=== PATIENT | female | born 1945 | race Caucasian/White ===

== ENCOUNTER → 2024-02-24 12:12 | Outpatient (REF) | payer MEDICARE, SELFPAY | LOC: REG 12:12 | PROVIDERS: ATTENDING PHYSICIAN Obstetrics & Gynecology; FAMILY PHYSICIAN Family Medicine | DX: Z22.322 Carrier or suspected carrier of Methicillin resistant Staphylococcus aureus (principal) | CPT/HCPCS: 36415; 87070 ==

== ENCOUNTER → 2024-03-15 10:22 | Outpatient (REF) | payer MEDICARE, SELFPAY | LOC: REG 10:22 | PROVIDERS: ATTENDING PHYSICIAN Obstetrics & Gynecology; FAMILY PHYSICIAN Family Medicine | DX: Z22.322 Carrier or suspected carrier of Methicillin resistant Staphylococcus aureus (principal) | CPT/HCPCS: 36415; 87070 ==

== ENCOUNTER → 2024-06-24 09:43 | Outpatient (REF) | payer MEDICARE, SELFPAY | LOC: HWRAD 09:43 | PROVIDERS: ATTENDING PHYSICIAN Obstetrics & Gynecology; FAMILY PHYSICIAN Family Medicine | DX: N95.0 Postmenopausal bleeding (principal) | CPT/HCPCS: 76830; 76856 ==

== ENCOUNTER → 2024-08-11 13:12 | Outpatient (REF) | payer MEDICARE, SELFPAY ==
[2024-08-11 15:21] LABS: Blood Urea Nitrogen 37 mg/dl (7-17); Calcium 10.1 mg/dl (8.4-10.2); Carbon Dioxide 27 mmol/L (22-30); Chloride 101 mmol/L (98-107); Glucose 102 mg/dl (70-99); Potassium 4.8 mmol/L (3.5-5.1); Sodium 139 mmol/L (135-145); eGFR 57.66
== END ==
LOC: REG 13:12
PROVIDERS: ATTENDING PHYSICIAN Obstetrics & Gynecology; FAMILY PHYSICIAN Family Medicine
DX: N82.4 Other female intestinal-genital tract fistulae (principal)
CPT/HCPCS: 36415; 80048

== ENCOUNTER → 2024-08-20 10:54 | Outpatient (REF) | payer MEDICARE, SELFPAY | LOC: RAD 10:54 | PROVIDERS: ATTENDING PHYSICIAN Surgery; FAMILY PHYSICIAN Family Medicine; OTHER PHYSICIAN Obstetrics & Gynecology | DX: N82.4 Other female intestinal-genital tract fistulae (principal) | CPT/HCPCS: 74177; Q9967 ==

== ENCOUNTER 2024-08-25 11:26 | Emergency (ER) | payer MEDICARE, SELFPAY ==
[2024-08-25 11:33] VITALS: BP 153/76
--- NOTE | 2024-08-25 16:35 | ED.GENMED ---
History of Present Illness
General
Chief Complaint: Abdominal Pain
Source: patient
Exam Limitations: none
Time Seen by Provider: 08/25/24 12:47
Nursing documentation reviewed up to this point in time: agreed with
History of Present Illness
History of Present Illness:
(Computer downtime)
79 yo female here for LLQ pain. 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 Had out pt barium enema 5 days ago. Developed LLQ �throbbing� pain
Had one episode diarrhea yesterday, denies n/v/c. Denies UTI symptoms.
Past History
Past History
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
ED Past Surgical History: Cholecystectomy, Gynecological and Orthopedic
Social History
Tobacco: Non-smoker
Alcohol: None
Personal: Single
Living: alone
Review of Systems
Review of Systems
Allergies reviewed?: Yes
All Other Systems: ROS reviewed and negative except as documented in HPI and ROS
Constitutional: Denies fever
Respiratory: Denies trouble breathing
Cardiac: Denies chest pain
ABD/GI: Reports abdominal pain; Denies nausea or vomiting
: Reports other (Chronic Intermittent stool from vagina)
Phy Exam
Physical Exam
Physical Exam:
GENERAL: No acute distress. A&Ox3.
CONSTITUTIONAL: Afebrile.
EYES: clear, conjunctivae normal
ENMT: moist mucus membranes, Pharynx nl
RESPIRATORY: Regular respirations, nonlabored, lungs clear.
CARDIOVASCULAR: Regular rate and rhythm, no murmurs, no rubs.
GI: Soft, nontender, normal BS
MUSCULOSKELETAL: Moves with ease. Well perfused.
SKIN: Warm, dry, pink
PSYCH: Normal mood and affect. Well kept, interactive and appropriate
NEUROLOGIC: Awake, alert and oriented. No focal neurological deficits
Course
Orders/Labs/Results
Orders:
Orders
08/25/24 13:02
CT Abd/pel Without Iv Or Oral Urgent
Comment:
Reason For Exam: pain LLQ after barium enema 5 days ago
08/25/24 14:01
Complete Blood Count/With Diff Urgent
Comprehensive Metabolic Panel Urgent
Lipase Urgent
Abnormal Lab Results
08/25/24
14:01
MCH 32.5 H pg
(27.0-31.0)
Abs Immat Gran (auto) 0.1 H 10^3/uL
(0-0.05)
Absolute Monos (auto) 0.9 H 10^3/uL
(0.1-0.6)
Immature Gran % 0.6 H %
(0-0.5)
Carbon Dioxide 32 H mmol/L
(22-30)
BUN 28 H mg/dl
(7-17)
08/25/24 14:01
08/25/24 14:01
Vital Signs
Initial and Last Documented VS:
Initial Vital Signs
Temp Pulse Resp BP Pulse Ox
97.9 F 71 16 153/76 99
08/25/24 11:33 08/25/24 11:33 08/25/24 11:33 08/25/24 11:33 08/25/24 11:33
Last Documented Vital Signs
Temp Pulse Resp BP Pulse Ox
97.9 F 71 16 153/76 99
08/25/24 11:33 08/25/24 11:33 08/25/24 11:33 08/25/24 11:33 08/25/24 11:33
MDM/Problems Addressed
Differential Diagnosis Includes:
diverticulitis, irritation from barium enema, perforation from barium enema
MDM/Problems Addressed:
(Computer downtime)
79 yo female here for LLQ pain . 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 Had out pt barium enema 5 days ago. Developed LLQ �throbbing� pain
Had one episode diarrhea yesterday, denies n/v/c. Denies UTI symptoms.
Has been moving bowels as usual.
3:00 p.m.
CBC: Unremarkable
CMP: BUN 28 otherwise unremarkable. IVFs ordered
Lipase normal
4:45 p.m.
IV fluids infused,
CT A/P - nothing grossly acute. True pelvis soft tissues signif obscured by beam artifact from Bilat hip replacements.
Pt with no significant pain. Will f/u with Dr. Morris.
Comfortable going home.
*Critical Care Note
Total Time (30-74mins, 75-104mins- exclusive of procedures): Not Applicable
ED Attending Note
-
Portions of this chart may have been created with voice recognition software.� Occasional wrong word or��sound alike� substitutions may have occurred due to the inherent limitations of voice recognition software.
Discharge Plan
Departure
Patient Disposition: Home (Routine Discharge)
Date of Disposition: 08/25/24
Time of Disposition: 16:45
Patient with high blood pressure during this ER visit?: No
Condition: Good
Discharge Problem:
Abdominal pain, LLQ
Instructions: Abdominal Pain
Referrals:
Arturo Franklin DO [Family Provider, Family Practice]
Williams Morris MD [Active, [facility]]
Activity Restrictions/Additional Instructions:
As we discussed, nothing worrisome in your workup here today.
Call Dr. Morris's office tomorrow and make next available appointment.
Interventions
Interventions:
*Risk Screen - Suicide Last Done: 08/25/24 11:37
*Neglect/Abuse Screening Last Done: 08/25/24 11:37
*Nursing Disposition Last Done: 08/25/24 17:11
Discharge Date and Time
Discharge Date/Time: 08/25/24 17:12
Print Language: FRENCH
[2024-08-25 17:05] LABS: % Basophils 0.6 % (0-2); % Eosinophils 0.6 % (0-6); % Immature Granulocytes 0.6 % (0-0.5); % Lymphocytes 20.8 % (20.5-51.1); % Neutrophils 68.4 % (42.2-75.2); Absolute Basophils 0.1 10^3/uL (0-0.2); Absolute Eosinophils 0.1 10^3/uL (0-0.7); Absolute Immature Granulocytes 0.1 10^3/uL (0-0.05); Absolute Monocytes 0.9 10^3/uL (0.1-0.6); Absolute Neutrophils 6.5 10^3/uL (1.4-6.5); Hematocrit 41.3 % (37.0-47.0); Hemoglobin 14.3 g/dL (12.0-16.0); Mean Corp Hgb Conc. 34.6 g/dL (33.0-37.0); Mean Corpuscular Hgb 32.5 pg (27.0-31.0); Mean Corpuscular Volume 93.9 fL (81.0-99.0); Mean Platelet Volume 9.2 fL (7.4-10.4); Nucleated Red Blood Cells % 0 %; Platelet Count 276 10^3/uL (130-400); Red Cell Dist. Width 12.5 % (11.5-14.5); White Blood Cell Count 9.5 10^3/uL (4.8-10.8)
[2024-08-25 17:32] LABS: AST (SGOT) 18 U/L (14-36); Albumin 4.1 g/dl (3.5-5.0); Alkaline Phosphatase 49 U/L (38-126); Blood Urea Nitrogen 28 mg/dl (7-17); Calcium 9.7 mg/dl (8.4-10.2); Carbon Dioxide 32 mmol/L (22-30); Chloride 106 mmol/L (98-107); Glucose 97 mg/dl (70-99); Lipase 125 U/L (23-300); Potassium 4.8 mmol/L (3.5-5.1); Sodium 140 mmol/L (135-145); Total Bilirubin 0.7 mg/dl (0.2-1.3); Total Protein 6.5 g/dl (6.3-8.2); eGFR > 60.00
[2024-08-25 18:30] LABS: ALT (SGPT) < 10 U/L (0-35)
== END 2024-08-25 17:12 | disposition home or self-care (01) ==
LOC: EMR 11:26
PROVIDERS: Registered Nurse; EMERGENCY PHYSICIAN Student in an Organized Health Care Education/Training Program; FAMILY PHYSICIAN Family Medicine
DX: R10.32 Left lower quadrant pain (principal); E78.00 Pure hypercholesterolemia, unspecified; I10 Essential (primary) hypertension; Z90.49 Acquired absence of other specified parts of digestive tract
CPT/HCPCS: 99284; 74176; 80053; 83690; 85025

== ENCOUNTER 2024-10-19 06:19 | Day surgery (SDC) | payer MEDICARE, SELFPAY | END 2024-10-19 14:27 | disposition home or self-care (01) | LOC: GI 06:19 | PROVIDERS: ATTENDING PHYSICIAN Surgery | DX: Z12.11 Encounter for screening for malignant neoplasm of colon (principal); N82.3 Fistula of vagina to large intestine; K57.30 Diverticulosis of large intestine without perforation or abscess without bleeding; K64.8 Other hemorrhoids; K56.699 Other intestinal obstruction unspecified as to partial versus complete obstruction; D12.5 Benign neoplasm of sigmoid colon; Z86.0100 Personal history of colon polyps, unspecified | CPT/HCPCS: 45385; 88305 ==

== ENCOUNTER 2024-11-30 05:49 | Inpatient (IN) | payer MEDICARE, SELFPAY ==
[2024-11-24 11:32] LABS: INR 0.92; PT 12.8 Sec (11.4-14.6)
[2024-11-24 11:33] LABS: APTT 30.9 Sec (23.4-35.0)
[2024-11-24 11:37] LABS: Hematocrit 43.3 % (37.0-47.0); Hemoglobin 14.3 g/dL (12.0-16.0); Mean Corp Hgb Conc. 33.0 g/dL (33.0-37.0); Mean Corpuscular Volume 96.7 fL (81.0-99.0); Platelet Count 317 10^3/uL (130-400); Red Cell Dist. Width 12.3 % (11.5-14.5)
[2024-11-24 12:30] LABS: ALT (SGPT) < 10 U/L (0-35); AST (SGOT) 20 U/L (14-36); Albumin 4.7 g/dl (3.5-5.0); Alkaline Phosphatase 67 U/L (38-126); Blood Urea Nitrogen 29 mg/dl (7-17); Calcium 9.7 mg/dl (8.4-10.2); Carbon Dioxide 29 mmol/L (22-30); Chloride 104 mmol/L (98-107); Glucose 88 mg/dl (70-99); Potassium 4.5 mmol/L (3.5-5.1); Sodium 140 mmol/L (135-145); Total Protein 7.3 g/dl (6.3-8.2); eGFR > 60.00
[2024-11-24 13:41] VITALS: BMI 23.2
[2024-11-24 14:06] LABS: Glycohemoglobin (HgbA1c) 5.2 % (4.0-5.6)
[2024-11-30] VITALS (15 sets, daily range): BP systolic 107–162; BP diastolic 40–121; BMI 23.7; BMI 23.2
[2024-11-30] MEDS: TYLENOL 1000 MG PO ×2 (06:28→18:22)
[2024-11-30] MEDS: CELEBREX 200 MG PO (06:29)
[2024-11-30] MEDS: LYRICA 150 MG PO (06:29)
[2024-11-30] MEDS: HEPARIN 5000 UNITS SC (06:29)
[2024-11-30] MEDS: NORMOSOL-R/PLASMALYTE-A 1000 IV ×2 (06:40→15:25)
[2024-11-30] MEDS: RELISTOR 12 MG SC (06:45)
--- NOTE | 2024-11-30 13:00 | W.IMMPOSTOP ---
Addendum entered and electronically signed by Williams Morris MD 11/30/24 13:19:
updated over the phone
Original Note:
Surgical Immed Post Op Note
-
Primary Surgeon: Williams Morris MD
Co�Surgeon: Aiden Alcala MD
Assisting Surgeon: SUZIE Haji
Pre-op Diagnosis: Colovaginal fistula, chronic diverticulitis
Post-op Diagnosis: Colovaginal fistula, chronic diverticulitis
Procedure Performed: Robotic colovaginal fistula takedown, sigmoidectomy, lysis of adhesions, flexible sigmoidoscopy, laparoscopic TAP block; repair of colovaginal fistula by Dr. Alcala; cystoscopy with bilateral ureteral stent placement by
Ruenes
Anesthesia Type: General
Specimen / Cultures: Rectosigmoid
Estimated Blood Loss: 75 mL
IVF 1.75 L
UOP 400 mL
Complications: None
Operative Findings: Entry via Veress technique; no significant adhesions to the anterior abdominal wall; placed 4 ports, an assist port and created a 4 cm Pfannenstiel; chronic inflammatory changes to the mid to distal sigmoid with significant
adhesions to the left pelvic brim and pelvis; freed from the lateral attachments and then performed medial to lateral dissection; visualized the right fallopian tube and ovary, unable to visualize the left ovary and fallopian tube; ligated LUPE and
mobilized mesentery from the retroperitoneum up to the mid descending colon; distal sigmoid colon looped into the pelvis and adherent to the anterior pelvis, likely the colovaginal fistula,; after rectosigmoid completely free, no obvious defect in
the vagina identified; Dr. Alcala performed a vaginal exam and identified the likely fistula at the vaginal cuff; the repaired this in 2 layers; transected proximal rectum at about 10 cm from the anal verge and proximal sigmoid on healthy colon
with green loads; performed EEA stapled anastomosis, intact donuts, negative leak test, anastomosis intact on flexible sigmoidoscopy; diffuse oozing noted and gave 1 g of TXA; performed laparoscopic tap block
--- NOTE | 2024-11-30 13:07 | OR.RPT ---
Operative Report
Operative Report
DATE OF OPERATION: 11/30/2024
SURGEON: Williams Morris MD
CO-SURGEON: Aiden Alcala MD
PREOPERATIVE DIAGNOSIS: Colovaginal fistula, chronic diverticulitis
POSTOPERATIVE DIAGNOSIS: Colovaginal fistula, chronic diverticulitis
OPERATION: Robotic colovaginal fistula takedown, adhesiolysis greater than 30 minutes, mesenteric angiography with ICG, sigmoidectomy, flexible sigmoidoscopy, laparoscopic TAP block; repair of colovaginal fistula by Dr. Alcala; cystoscopy and
insertion of bilateral ureteral stents by Dr. Rodriguez
ASSISTANTS:
1. SUZIE Haji
ANESTHESIA: General
ESTIMATED BLOOD LOSS: 75 mL
IVF: 1.75 L
URINE OUTPUT: 400 mL
FINDINGS:
1. Chronic diverticulitis of the mid to distal sigmoid with looping of the distal sigmoid into the pelvis; identified dense fibrosis anteriorly, likely representing the colovaginal fistula; no overt vaginal defect seen
2. Dr. Alcala confirmed fistula at the vaginal cuff and repaired this in 2 layers
3. Performed EEA stapled anastomosis from the proximal rectum at 10 cm from the anal verge to the proximal sigmoid; donuts intact, negative leak test, anastomosis intact on flexible sigmoidoscopy
SPECIMENS:
1. Rectosigmoid colon
DRAINS: None
COMPLICATIONS: No immediate complications.
INDICATIONS: The patient is a 79-year-old female who was seen by Dr. Alcala for urinary incontinence. During a pelvic exam, Dr. Alcala identified feculent material within the vagina. She confirmed that she was having brown vaginal drainage. A
CT scan was done with oral and rectal contrast demonstrating contrast within the vagina, concerning for colovaginal fistula. Therefore, she was offered surgery. She has had a long history of recurrent diverticulitis, which most likely represents
the etiology of the fistula. She also had a prior hysterectomy. The operation was discussed with the patient in detail, including the risks, benefits and alternatives. Risks described included, but not limited to, bleeding, infection, anastomotic
leak, damage to nearby structures (i.e.- ureter, bowel, solid organs), incisional hernia, recurrent diverticulitis, need for ostomy creation, conversion to open, identification of a fistula from the rectum requiring a lower resection, and anesthetic
risks. The patient understood and agreed to proceed.
PROCEDURE IN DETAIL: The patient was taken to the operating room and placed on the operating table in supine position. Sequential compression devices were placed bilaterally. General anesthesia was induced and the patient was intubated without
complication. The patient was placed in lithotomy position with both arms tucked. Urology performed a cystoscopy, placed bilateral ureteral stents, injected each ureter with 2.5mL of ICG and placed a Mcqueen. The abdomen was prepped and draped in a
sterile fashion. A time-out was performed verifying the correct patient, procedure, operative site, positioning, and special equipment. Anesthesia placed an orogastric tube. Preoperative antibiotics were given. A marking pen was used to flores out
the midline.
An 8 mm incision at Blackman's point was made with an 11 blade scalpel. A Veress needle was used to gain abdominal access. After 3 clicks, the insufflation was connected to the Veress needle and the opening pressure was noted to be less than 8 mmHg.
The abdomen was insufflated to a pressure of 12 mmHg. An 8 mm robotic trocar was inserted. The robotic camera was advanced and intra-abdominal placement was confirmed. The abdomen was examined. No injuries were noted from port entry or from the
Veress needle. No concerning lesions were noted on the surface of the liver or the peritoneum. The remaining three 8mm robotic ports were placed under direct visualization in a diagonal fashion from Blackman's point to the right lower quadrant, as
well as an 8mm assist port in the right lateral mid abdomen, taking care to avoid injury to the right epigastric vessels. The left upper quadrant port was changed to the air seal port.
A 4 cm Pfannenstiel incision was created 2 fingerbreadths above the pubic symphysis. This was carried down to the anterior fascia with electrocautery and hemostasis was assured. The fascia was incised to just beyond the length of the skin
incision. The fascia was grasped with Robert's and elevated. The adhesions to the anterior fascia were taken down bluntly from the rectus abdominis muscle and the midline attachment was taken down with electrocautery. This was performed both
superiorly and inferiorly to our incision. The rectus was split along the midline, first scoring the linea alba with electrocautery, then bluntly with a Maegan clamp to reveal the peritoneum, which was grasped and elevated with Kellys. The
peritoneum was incised with Metzenbaum scissors, taking care to avoid injury to intraperitoneal structures. The peritoneum was incised cranially and caudally to the greatest extent that our incision would allow, taking care to avoid injury to the
bladder. A small Leopoldo with port cap was placed and a robotic 12 mm port was placed through the port cap. The patient was placed in steep trendelenburg and [id number]. The robot was docked from the patient's left side. From the RLQ to
Blackman's point, the instruments introduced were the scissors, camera, bipolar grasper and tip-up grasper, respectively.
The small bowel was retracted out of the pelvis and towards the right upper quadrant. There were chronic inflammatory changes to the mid-distal sigmoid colon with significant adhesions to the left pelvic brim and pelvis. The sigmoid looped down
into the pelvis. I was able to identify the right ovary and fallopian tube, which appeared normal. I freed the adhesions from the left pelvic brim and left upper pelvis, taking care to avoid injury to the iliac vessels and left ureter, which was
easily seen on firefly. I was unable to visualize the left ovary. I raised the sigmoid colon and began a medial to lateral dissection. The peritoneum overlying the sacral promontory was scored and entered. This dissection was taken medially
toward the left ureter and superiorly towards the LUPE pedicle, taking care to avoid injury to the hypogastric nerves. I circumferentially dissected the LUPE pedicle and divided this with the vessel sealer, keeping the left ureter safe. I continued
the dissection, mobilizing the retroperitoneum from the mesentery up to the mid-descending colon. I then took down the lateral attachments.
I continued the dissection inferiorly, posteriorly to the rectum in the presacral plane, and took this down to the mid-rectum, taking care to avoid injury to the presacral venous plexus. I returned to anterior and meticulously dissected the colon
from the anterior pelvis. I took my posterior dissection up the sides of the rectum bilaterally to ensure I was in the correct plane. I was able to identify the cul-de-sac. I took down the chronic adhesions from the colon to the anterior pelvis,
connecting down into the cul-de-sac. A sizer was placed in the vagina, confirming no obvious injury. At this point, the rectosigmoid was completely mobilized. I did not see an obvious vaginal defect, but I suspect that within this chronic
fibrosis was the colovaginal fistula. I performed a flexible sigmoidoscopy. There was minimal liquid stool, which I suctioned. There was no inflammation noted within the rectum or distal sigmoid. The sigmoidoscope was withdrawn.
I called in Dr. Alcala, who performed vaginal exam and identified the likely fistula at the vaginal cuff. He will dictate this portion separately. He repaired the defect from the intra-abdominal side with 2 layers. I prepared for my resection.
I passed up EEA sizers in progressively increasing size to ensure adequate circumference and reach. I selected a transection point at approximately 10 cm from the anal verge. I went back to the console. I retracted the rectosigmoid anteriorly and
created a tunnel through the mesorectum. I ligated it with the vessel sealer, ensuring hemostasis at the superior rectal artery. I stapled and divided at this point with the 60 mm robotic stapler using the green load.
For my proximal transection point, I assessed the sigmoid and distal descending colon. There was inflammation and thickening of the colon wall up to the level of the mid sigmoid colon. I selected a point just proximal to this area on healthy
colon. I elevated the colon at this point with my tip up grasper. I fanned out the mesentery from the divided LUPE stump. I ligated the mesentery from this spot to my transection point, taking care to avoid injury to the left ureter. Anesthesia
injected ICG and perfusion was confirmed to my proposed transection point.
I elected to proceed with an intracorporeal end-to-end stapled anastomosis with EEA stapler. A colotomy in the devascularized segment of colon was created using the robotic scissors at a point distal to my proposed proximal transection point. The
anvil with a long Prolene suture attached at the tip was carefully passed through the colotomy and advanced proximally up the descending colon, with the long Prolene remaining outside of the colon. The colotomy was closed around the Prolene stitch
using a V-Loc running stitch. The robotic stapler with a blue load was used to staple and divide the descending colon at my proposed transection point where adequate perfusion was noted on firefly. The specimen was placed in the left upper
quadrant. The Prolene attached to the anvil was grasped and pulled through the staple line after removing a few paolo. I grasped and elevated the anvil and cleaned up the staple line from intervening mesentery and fat. The anvil was seated along
the staple line nicely without intervening diverticula or mesentery. Then, the specimen was removed through the Pfannenstiel port and passed off for pathology.
I checked the reach of the proposed anastomosis once more and it was plenty adequate. The operative field was surveyed and hemostasis was ensured. Sizers were passed up the rectum once more to ensure adequate circumference and length. The EEA
stapler was passed transanally to the distal staple line. The pin was extended and was connected with the anvil. After ensuring there was no twist to the mesentery and there was no tension, the EEA stapler was then closed for 1 minute and then
fired. Both donuts were intact. A leak test was performed by filling the pelvis with saline, occluding the proximal lumen and insufflating with the flexible sigmoidoscope. There was no evidence of leak from the anastomosis. Endoscopically, the
anastomosis was intact without evidence of bleeding. The colorectum was desufflated and the flexible sigmoidoscope removed. I checked for hemostasis once more. There was diffuse oozing noted along the areas of dissection, including the presacral
space and left retroperitoneum. I irrigated and suctioned the blood and no obvious site of bleeding was seen. I instructed anesthesia to give 1 g of TXA.
The robotic instruments were removed and the robot was undocked. Using laparoscopic visualization, a TAP block was performed using a total of 30 mL of 0.25% Marcaine with epinephrine mixed with dexamethasone and injecting in the transverse
abdominis plane bilaterally. The remaining ports were removed under direct visualization and no bleeding was noted. The Pfannenstiel incision was closed in layers. First, the peritoneum was closed with a running 0-Vicryl stitch. Then, the
anterior fascia was closed using a #1 Stratafix suture. The incisions were irrigated. The remaining 30 cc of 0.25% Marcaine with epinephrine mixed with dexamethasone were injected around the incisions. The incisions were closed with running
subcuticular 4-0 Monocryl and dressed with Dermabond.
At this point, the procedure was complete. The patient was awoken and extubated without complication. The right stent was removed, and the left stent and Mcqueen were left in place. All needle, sponge and instrument counts were reported as correct.
The patient tolerated the procedure well and was transferred to the recovery room in stable condition with the mcqueen in place.
DICTATED BY: Williams Morris MD
[2024-11-30 15:04] LABS: Hematocrit 40.1 % (37.0-47.0); Hemoglobin 13.3 g/dL (12.0-16.0); Mean Corp Hgb Conc. 33.2 g/dL (33.0-37.0); Mean Corpuscular Volume 97.8 fL (81.0-99.0); Platelet Count 259 10^3/uL (130-400); Red Cell Dist. Width 12.6 % (11.5-14.5)
[2024-11-30 15:24] LABS: Blood Urea Nitrogen 21 mg/dl (7-17); Calcium 8.0 mg/dl (8.4-10.2); Carbon Dioxide 24 mmol/L (22-30); Chloride 101 mmol/L (98-107); Estimated Creatinine Clearance 52 ml/min; Glucose 214 mg/dl (70-99); Potassium 3.3 mmol/L (3.5-5.1); Sodium 138 mmol/L (135-145); eGFR > 60.00
[2024-11-30 15:49] LABS: Nucleated Red Blood Cells % 0 %
--- NOTE | 2024-11-30 16:19 | PTCARENOTE ---
Pt arrived to [facility]south in a bed from PACU. Pt drowsy but arousable to verbal. SR on the monitor. 96% on RA. [address] greenlandic [address] with punch color output; to be removed POD#2. 5 lap sites & 1 transverse CONTROLS DESIGNER with glue. IVF hung at 50cc/hr. Knee high
teds/scds in place. at bedside. Admission questions answered. Bed locked and in lowest position. Care ongoing.
[2024-11-30] MEDS: TORADOL 15 MG IV (18:21)
[2024-11-30 19:38] LABS: Glucose - Point of Care 185 mg/dl (70-99)
[2024-11-30] MEDS: KCL 270 MEQ IV (20:30)
[2024-12-01] VITALS (7 sets, daily range): BP systolic 104–140; BP diastolic 54–68
[2024-12-01] MEDS: TORADOL 15 MG IV ×4 (00:33→17:29)
[2024-12-01] MEDS: TYLENOL 1000 MG PO ×4 (00:45→17:29)
[2024-12-01] MEDS: ROXICODONE 5 MG PO ×3 (03:21→22:14)
[2024-12-01 06:03] LABS: Hematocrit 34.6 % (37.0-47.0); Hemoglobin 11.9 g/dL (12.0-16.0); Mean Corp Hgb Conc. 34.4 g/dL (33.0-37.0); Mean Corpuscular Volume 95.6 fL (81.0-99.0); Nucleated Red Blood Cells % 0 %; Platelet Count 234 10^3/uL (130-400); Red Cell Dist. Width 12.5 % (11.5-14.5)
[2024-12-01 06:25] LABS: Blood Urea Nitrogen 25 mg/dl (7-17); Calcium 8.7 mg/dl (8.4-10.2); Carbon Dioxide 29 mmol/L (22-30); Chloride 100 mmol/L (98-107); Estimated Creatinine Clearance 41 ml/min; Glucose 156 mg/dl (70-99); Magnesium 2.6 mg/dl (1.6-2.3); Potassium 4.0 mmol/L (3.5-5.1); Sodium 135 mmol/L (135-145); eGFR > 60.00
[2024-12-01] MEDS: LEXAPRO 20 MG PO (09:01)
[2024-12-01] MEDS: PROTONIX 40 MG PO (09:01)
[2024-12-01] MEDS: ORETIC 12.5 MG PO (09:01)
[2024-12-01] MEDS: LIPITOR 10 MG PO (09:01)
[2024-12-01] MEDS: RELISTOR 12 MG SC (09:01)
[2024-12-01] MEDS: COZAAR 100 MG PO (09:10)
[2024-12-01] MEDS: NORMOSOL-R/PLASMALYTE-A IV (10:53)
[2024-12-01 12:03] LABS: Hematocrit 37.8 % (37.0-47.0); Hemoglobin 12.3 g/dL (12.0-16.0); Mean Corp Hgb Conc. 32.5 g/dL (33.0-37.0); Mean Corpuscular Volume 98.2 fL (81.0-99.0); Nucleated Red Blood Cells % 0 %; Platelet Count 245 10^3/uL (130-400); Red Cell Dist. Width 12.8 % (11.5-14.5)
[2024-12-01 12:15] LABS: Blood Urea Nitrogen 24 mg/dl (7-17); Calcium 8.6 mg/dl (8.4-10.2); Carbon Dioxide 28 mmol/L (22-30); Chloride 100 mmol/L (98-107); Estimated Creatinine Clearance 37 ml/min; Glucose 144 mg/dl (70-99); Potassium 4.9 mmol/L (3.5-5.1); Sodium 133 mmol/L (135-145); eGFR 57.66
--- NOTE | 2024-12-01 12:28 | W.PN.CRS1 ---
Today's Communication / Plan
-
Continue regular diet
Lovenox
DC Gee
Possible DC later today versus tomorrow
Assessment/Plan
-
POD#1 Robotic colovaginal fistula takedown, sigmoidectomy, lysis of adhesions, flexible sigmoidoscopy, laparoscopic TAP block; repair of colovaginal fistula by Dr. Alcala; cystoscopy with bilateral ureteral stent placement by Dr. Rodriguez
Hgb 12.3 (11.9, 13.3), WBC 19.6 (16.7, 23.1)
vitals normal
- Out of bed as tolerated
- Continue regular diet
- Hemoglobin rechecked and is improving
- Start Lovenox for DVT prophylaxis. Teds and SCDs in place.
- Statin removed at bedside. DC Gee.
- Pathology still pending
- Possible discharge later today versus tomorrow
Subjective Data
Procedure
11/30/2024- Robotic colovaginal fistula takedown, sigmoidectomy, lysis of adhesions, flexible sigmoidoscopy, laparoscopic TAP block; repair of colovaginal fistula by Dr. Alcala; cystoscopy with bilateral ureteral stent placement by Dr. Rodriguez
Subjective Data
Date of Service: December 01, 2024
Patient states she feels well. She has no complaints. She has some flatus. Her pain is controlled. Tolerating regular diet.
Objective Data
-
Vital Signs
Temp Pulse Resp BP Pulse Ox
98.7 F 85 18 104/55 96
12/01/24 11:20 12/01/24 11:20 12/01/24 11:20 12/01/24 11:20 12/01/24 11:20
Intake & Output
11/30/24 12/01/24 12/02/24
06:59 06:59 06:59
Intake Total 1470 / 1470
Output Total 1600 / 1600 350 / 350
Balance -130 / -130 -350 / -350
Intake:
Oral fluids 620 / 620
IV fluids (Total) 850 / 850
normasol 100 / 100
Output:
Urine, Gee 1600 / 1600 350 / 350
Lab Results
12/01/24 11:47
12/01/24 11:47
Physical Exam
-
General: No Acute Distress and AOx3
Abdomen: Soft, Non Distended and Non Tender
Skin: Warm and Dry
Incision: Clear, Dry, Intact
--- NOTE | 2024-12-01 14:56 | CM ---
CM following re: discharge planking.
Reviewed pt's chart, met with pt.
Pt is a 79 year old female, admitted with primary dx of POD 1 robotic sigmoidectomy with colovaginal fistula takedown, repair of vaginal fistula, cystoscopy and ureteral stents.
Pt reports she lives with 2SH, 2 steps to enter, has 6 supportive children. 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 Pt expressed her desire to return
back home at discharge with family support. pt stated she does not anticipate after care VN services.
PCP: Williams Morris
Pharmacy: [facility]
D/c plan: home with anticipated no needed. to transport at discharge.
CM will follow with discharge plan updates as hospitalization progresses
[2024-12-01] MEDS: LOVENOX 40 MG SC (17:30)
[2024-12-01] MEDS: REFRESH EYE DROPS (PF) 1 DROPS OPHTH (21:37)
[2024-12-02] MEDS: TORADOL IV ×3 (00:47→11:43)
[2024-12-02] MEDS: TYLENOL PO ×3 (00:47→11:44)
[2024-12-02 03:05] VITALS: BP 145/71
[2024-12-02 06:40] LABS: Hematocrit 32.9 % (37.0-47.0); Hemoglobin 10.9 g/dL (12.0-16.0); Mean Corp Hgb Conc. 33.1 g/dL (33.0-37.0); Mean Corpuscular Volume 96.5 fL (81.0-99.0); Nucleated Red Blood Cells % 0 %; Platelet Count 188 10^3/uL (130-400); Red Cell Dist. Width 12.6 % (11.5-14.5)
[2024-12-02 07:03] LABS: Blood Urea Nitrogen 22 mg/dl (7-17); Calcium 8.6 mg/dl (8.4-10.2); Carbon Dioxide 30 mmol/L (22-30); Chloride 107 mmol/L (98-107); Estimated Creatinine Clearance 41 ml/min; Glucose 100 mg/dl (70-99); Potassium 3.7 mmol/L (3.5-5.1); Sodium 137 mmol/L (135-145); eGFR > 60.00
[2024-12-02 07:15] VITALS: BP 162/73
--- NOTE | 2024-12-02 09:37 | W.PN.CRS1 ---
Today's Communication / Plan
-
discharge
Assessment/Plan
-
POD#2 Robotic colovaginal fistula takedown, sigmoidectomy, lysis of adhesions, flexible sigmoidoscopy, laparoscopic TAP block; repair of colovaginal fistula by Dr. Alcala; cystoscopy with bilateral ureteral stent placement by Dr. Rodriguez
Hgb WBC 11.4 (19.4), Hgb 10.9 (13.9)
vitals normal
- Out of bed as tolerated
- Continue regular diet
- Lovenox for DVT prophylaxis. Teds and SCDs in place.
- Voiding post mcqueen removal
- Pathology still pending
- Okay for discharge today. Discussed with patient who is in agreement. All discharge instructions were discussed with patient medications, active levels, and follow-up. All questions were answered. Follow-up with Dr. Morris in 2 weeks.
Subjective Data
Procedure
11/30/2024- Robotic colovaginal fistula takedown, sigmoidectomy, lysis of adhesions, flexible sigmoidoscopy, laparoscopic TAP block; repair of colovaginal fistula by Dr. Alcala; cystoscopy with bilateral ureteral stent placement by Dr. Rodriguez
Subjective Data
Date of Service: December 02, 2024
Patient states that she is feeling well. She had some little bit of bloody vaginal discharge which was expected. She is having bowel movements and flatus. Denies nausea or vomiting. Tolerating diet. She feels like she can go home today.
Objective Data
-
Vital Signs
Temp Pulse Resp BP Pulse Ox
98.5 F 73 16 162/73 98
12/02/24 07:15 12/02/24 07:15 12/02/24 07:15 12/02/24 07:15 12/02/24 07:15
Intake & Output
12/01/24 12/02/24 12/03/24
06:59 06:59 06:59
Intake Total 1470 / 1470 630 / 630
Output Total 1600 / 1600 650 / 650
Balance -130 / -130 -20 / -20
Intake:
Oral fluids 620 / 620 480 / 480
IV fluids (Total) 850 / 850 150 / 150
normasol 100 / 100
Output:
Urine, Mcqueen 1600 / 1600 350 / 350
Urine, Voided 300 / 300
Other:
Number of approximated LARGE 1
amounts of urine
Lab Results
12/02/24 06:11
12/02/24 06:11
Physical Exam
-
General: No Acute Distress and AOx3
Abdomen: Soft, Non Distended and Non Tender
Skin: Warm and Dry
Incision: Clear, Dry, Intact (some ecchymosis around incisions)
[2024-12-02] MEDS: RELISTOR 12 MG SC (09:54)
[2024-12-02] MEDS: PROTONIX 40 MG PO (09:56)
[2024-12-02] MEDS: LIPITOR 10 MG PO (09:56)
[2024-12-02] MEDS: COZAAR 100 MG PO (09:57)
[2024-12-02] MEDS: ORETIC 12.5 MG PO (09:57)
[2024-12-02] MEDS: LEXAPRO 20 MG PO (09:57)
[2024-12-02] MEDS: ROXICODONE 5 MG PO (10:04)
--- NOTE | 2024-12-02 11:13 | CM ---
Patient discharged today
no needs
IMM explained & signed. placed in chart.
PLAN: Home, no needs
to transport
[2024-12-02 11:30] VITALS: BP 144/72
--- NOTE | 2024-12-02 12:12 | PTCARENOTE ---
Rn breastfeeding program coordinator- Patient requesting hydrocodone. Abebe Mendez NP. who states will order.
== END 2024-12-02 12:41 | disposition home or self-care (01) | DRG 330 ==
LOC: 2 SOUTH 05:49
PROVIDERS: Physician Assistant; ADMITTING PHYSICIAN Surgery; FAMILY PHYSICIAN Family Medicine; REFERRING PHYSICIAN Obstetrics & Gynecology
PROC: 0UQG4ZZ Repair Vagina, Percutaneous Endoscopic Approach (ICD-10-PCS; 2024-11-30)
PROC: 0DNW4ZZ Release Peritoneum, Percutaneous Endoscopic Approach (ICD-10-PCS; 2024-11-30)
PROC: 0DTN8ZZ Resection of Sigmoid Colon, Via Natural or Artificial Opening Endoscopic (ICD-10-PCS; 2024-11-30)
PROC: 0DJD8ZZ Inspection of Lower Intestinal Tract, Via Natural or Artificial Opening Endoscopic (ICD-10-PCS; 2024-11-30)
PROC: 8E0W4CZ Robotic Assisted Procedure of Trunk Region, Percutaneous Endoscopic Approach (ICD-10-PCS; 2024-11-30)
PROC: 0DNE4ZZ Release Large Intestine, Percutaneous Endoscopic Approach (ICD-10-PCS; 2024-11-30)
DX: N82.3 Fistula of vagina to large intestine (principal); K57.32 Diverticulitis of large intestine without perforation or abscess without bleeding; N73.6 Female pelvic peritoneal adhesions (postinfective); I10 Essential (primary) hypertension; E78.5 Hyperlipidemia, unspecified; F41.9 Anxiety disorder, unspecified; R32 Unspecified urinary incontinence
CPT/HCPCS: 36415; 71046; 80048; 80053; 82962; 83036; 83735; 85025; 85027; 85610; 85730; 86850; 86900; 86901; 88307; 93005

== ENCOUNTER → 2024-12-14 11:48 | Outpatient (REF) | payer MEDICARE, SELFPAY ==
[2024-12-14 12:42] LABS: Urine Character Slightly Cloudy (Clear)
[2024-12-14 13:32] LABS: Urine White Cell >100 /HPF (0-5)
== END ==
LOC: REG 11:48
PROVIDERS: ATTENDING PHYSICIAN Obstetrics & Gynecology
DX: N39.0 Urinary tract infection, site not specified (principal)
CPT/HCPCS: 81003; 81015; 87077; 87086; 87186

== ENCOUNTER 2024-12-21 04:51 | Inpatient (IN) | payer MEDICARE, SELFPAY ==
[2024-12-20 20:24] VITALS: BP 183/97
[2024-12-20 20:46] LABS: Hematocrit 42.2 % (37.0-47.0); Hemoglobin 14.0 g/dL (12.0-16.0); Mean Corp Hgb Conc. 33.2 g/dL (33.0-37.0); Mean Corpuscular Volume 95.5 fL (81.0-99.0); Nucleated Red Blood Cells % 0 %; Platelet Count 417 10^3/uL (130-400); Red Cell Dist. Width 12.3 % (11.5-14.5)
[2024-12-20 20:59] LABS: Urine Character Slightly Cloudy (Clear)
[2024-12-20 21:07] LABS: ALT (SGPT) < 10 U/L (0-35); AST (SGOT) 22 U/L (14-36); Albumin 4.8 g/dl (3.5-5.0); Alkaline Phosphatase 79 U/L (38-126); Blood Urea Nitrogen 23 mg/dl (7-17); Calcium 10.0 mg/dl (8.4-10.2); Carbon Dioxide 26 mmol/L (22-30); Chloride 102 mmol/L (98-107); Glucose 123 mg/dl (70-99); Potassium 4.0 mmol/L (3.5-5.1); Sodium 137 mmol/L (135-145); Total Protein 7.7 g/dl (6.3-8.2); eGFR > 60.00
[2024-12-20 21:27] LABS: Urine Squamous Cell 0-2 /LPF (Few)
[2024-12-21 00:21] VITALS: BMI 26.7
[2024-12-21 00:24] VITALS: BP 151/92
[2024-12-21 01:00] VITALS: BP 126/98
[2024-12-21] MEDS: ZOFRAN 4 MG IV (01:32)
[2024-12-21] MEDS: OMNIPAQUE 50 ML PO (01:32)
[2024-12-21] MEDS: NSS 1500 IV (01:33)
[2024-12-21] MEDS: DILAUDID 0.5 MG IV (01:33)
--- NOTE | 2024-12-21 02:22 | ED.GENMED ---
History of Present Illness
General
Chief Complaint: Urinary Symptoms
Source: patient, records, spouse and previous hospital records
Exam Limitations: none
Time Seen by Provider: 12/21/24 00:59
Nursing documentation reviewed up to this point in time: agreed with
History of Present Illness
History of Present Illness:
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 Alcala and Dr. Morris
Postoperatively did well for a day or so then developed some fatigue and fever had urinalysis treated with Macrobid then another antibiotic and then most recently placed back on Macrobid
She has chronic pain in her left hip related to prior surgery with infection has had pain and had a spinal stimulator with an infection there, she takes tramadol 2-4 times a day as needed does note that she gets constipated with that
She spoke with her physicians today referred her to the ER for admission for IV antibiotics did receive a note from her treating colorectal surgeon that they wanted a contrast study with rectal contrast
Past History
Past History
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
ED Past Surgical History: Cholecystectomy, Gynecological and Orthopedic
Social History
Tobacco: Non-smoker
Alcohol: None
Drug: None
Personal: Single
Living: alone
Employment: Retired
Review of Systems
Review of Systems
All Other Systems: Not applicable
Constitutional: Reports fever, fatigue and chills
EENT: Reports no symptoms
Respiratory: Reports no symptoms
ABD/GI: Reports abdominal pain and nausea; Denies diarrhea or bloody stools
: Reports frequency; Denies difficulty voiding
Phy Exam
Physical Exam
Physical Exam:
Physical Exam
General: no apparent distress, not acutely ill
Neck: No jaundice
Heart: s1/s2 regular rate and rhythm, no murmur. equal radial pulses.
Lungs: no acute respiratory distress. clear bilaterally
Abdomen: Palpable 3 x 5 cm minimally tender area just left of midline in the low left abdomen
Neuro: alert and oriented. no focal neurological deficits
Skin: no rash
Psychiatric: well kept. interactive and cooperative
Extremities: no edema.
Course
Orders/Labs/Results
Orders:
Orders
12/20/24 20:36
Complete Blood Count/With Diff Urgent
Comprehensive Metabolic Panel Urgent
Urinalysis Reflex To Culture Urgent
Date Specimen was Collected: 12/20/24
Time Specimen was Collected: 20:27
Urine Microscopic Reflex Cult Urgent
Urine Culture Urgent
BURTON Source: U
Specimen Description:
Date Specimen was Collected: 12/20/24
Time Specimen was Collected: 20:27
12/21/24 01:06
0.9% Sodium Chloride 1000 ml [Nss] 1,500 ml IV BOLUS
HYDROmorphone [Dilaudid] 0.5 mg IV NOW STA
Ondansetron Injectable [Zofran] 4 mg IV NOW STA
12/21/24 01:12
Iohexol [Omnipaque] See Protocol PO NOW STA
12/21/24 01:14
CT Abd/pel W Iv And Oral Contr Urgent
Comment:
Reason For Exam: post op pain fever also rectal contrast
12/21/24 02:16
Add On- LAB Urgent
Tests Added?: Urine culture
12/21/24 02:48
Piperacillin/Tazo 3.375 Gram [Zosyn] 3.375 gram in 50 ml IV NOW
12/21/24 04:37
Meropenem [Merrem] 500 mg IV NOW STA
12/21/24 04:39
Admit/Transfer Patient As Directed
Co-Sign Provider:
Level of Care: Inpatient admission
Assign to:: Medical/Surgical
Physician / Group: Toribio
Diagnosis: UTI - Persistent / Recurrent
Reason for Hospitalization: UTI - Persistent / Recurrent
Expected length of stay greater than two midnights?: Yes
ELOS- Estimated Length of Stay in days: 3
I certify the patient meets the requirements for IP care: Yes
12/21/24 04:40
Sterile Water [Sterile Water For Injection] 10 ml IV NOW STA
PRN Pain Medication Management As Directed
May give lesser potent ordered pain med per pt: Yes
preference::
Protocol:: Medication orders for pain may be administered in a
manner that supports deferring to patient preference
when the pt is:
- Requesting an ordered lesser potent pain medication.
Least to most potent pain medications are defined
as: acetaminophen < NSAID < tramadol < opioids
(morphine, oxycodone, hydromorphone).
- Requesting a lesser dose of the same medication IF
ORDERED.
- Requesting a less intrusive route of administration
if both routes are prescribed by the provider (PO <
IV).
12/21/24 04:41
Code Status As Directed
Resuscitation Status: Full Code
12/21/24 05:24
0.9% Sodium Chloride 1000 ml [Nss] 1,000 ml IV 100 mls/hr
Acetaminophen [Tylenol] 650 mg PO Q4HPRN PRN
Methocarbamol 500 mg PO HSPRN PRN Muscle spasms Muscle spasms
Polyethylene Glycol Powder [Miralax] 17 grams PO DAILY PRN
Prochlorperazine [Compazine] 5 mg IV Q6HPRN PRN
Tramadol HCl [Ultram] 50 mg PO Q6H PRN Pain
12/21/24 05:24
ColoRectal Surgery Consult Routine
Consulting Provider: Williams Morris
Was physician already notified: No
Reason for consult: Colovaginal Fistula, UTI
Consult Notification Routine
Specialty to Notify: Colorectal Surgery
Date consulting provider notified: 12/21/24
Time consulting provider notified: 07:55
Notified:: Provider
Comment: TT'd Physician On-Call(Ronni)
Consult Notification Routine
Specialty to Notify: Infectious Disease
Date consulting provider notified: 12/21/24
Time consulting provider notified: 07:55
Notified:: Provider
Comment: TT'd Physician On-Call(William)
INFECTIOUS DISEASE CONSULT Routine
Consulting Provider: Keiko Thomas
Was physician already notified: No
Reason for consult: ESBL / Resistant UTI
Activity As Directed
Activity Level: Ambulate
With Assistance
I/O [Intake/ Output] As Directed
Frequency: Per unit guidelines
Vital Signs As Directed
Frequency: Per unit guidelines
Weight As Directed
Frequency: Daily
Oxygen Therapy [O2 Therapy] [RESP] Routine
Titrate/Wean O2 to maintain O2 sat greater than (%): 94
DX Deep Vein Thrombosis Video Routine
12/21/24 Breakfast
NPO
Allow oral meds: Yes
Allow clear liquids: Sips of Clears
12/21/24 07:30
Basic Metabolic Panel IN AM
Complete Blood Count/No Diff IN AM
12/21/24 08:00
Atorvastatin [Lipitor] 10 mg PO DAILY
Escitalopram Oxalate [Lexapro] 20 mg PO DAILY
Heparin 5,000 units SC Q12
Pantoprazole [Protonix] 40 mg PO DAILY
12/21/24 10:00
Meropenem [Merrem] 500 mg IV Q8H
Abnormal Lab Results
12/20/24
20:36
MCH 31.7 H pg
(27.0-31.0)
Plt Count 417 H 10^3/uL
(130-400)
Abs Immat Gran (auto) 0.1 H 10^3/uL
(0-0.05)
Absolute Monos (auto) 1.1 H 10^3/uL
(0.1-0.6)
Monocytes % 11.0 H %
(1.7-9.3)
BUN 23 H mg/dl
(7-17)
Glucose 123 H mg/dl
(70-99)
Urine Ketones 1+ A
(Negative)
Leukocyte Esterase Rfl 1+ A
(Negative)
Urine RBC 3-6 A /HPF
(0-2)
Urine Bacteria (Reflex) Few A
(Negative)
Urine Albumin (Reflex) 2+ A
(Neg - Trace)
12/20/24 20:36
12/20/24 20:36
Vital Signs
Initial and Last Documented VS:
Initial Vital Signs
Temp Pulse Resp BP Pulse Ox
98.3 F 85 18 183/97 100
12/20/24 20:24 12/20/24 20:24 12/20/24 20:24 12/20/24 20:24 12/20/24 20:24
Last Documented Vital Signs
Temp Pulse Resp BP Pulse Ox
98.4 F 71 12 157/81 95
12/21/24 23:43 12/21/24 23:43 12/21/24 23:43 12/21/24 23:43 12/21/24 23:43
*Pulse Oximetry
SaO2: 99
Oxygen Mode of Delivery: Room air
Patient hypoxic: no
*Critical Care Note
Total Time (30-74mins, 75-104mins- exclusive of procedures): Not Applicable
ED Attending Note
-
Portions of this chart may have been created with voice recognition software.� Occasional wrong word or��sound alike� substitutions may have occurred due to the inherent limitations of voice recognition software.
Discharge Plan
Departure
Patient Disposition: Admit
Date of Disposition: 12/21/24
Time of Disposition: 02:51
Presentation/result/management discussed w/ accepting MD/DO: Hospitalist
Patient with high blood pressure during this ER visit?: No
Condition: Fair
Discharge Problem:
Recurrent UTI
Interventions
Interventions:
*Risk Screen - Suicide Last Done: 12/21/24 05:43
*General Assessment Last Done: 12/21/24 00:21
*Neglect/Abuse Screening Last Done: 12/21/24 00:21
*ED- Fall Risk Assessment Last Done: 12/21/24 00:21
*ED COVID-19 Vaccine History Last Done: 12/21/24 05:43
*Nursing Disposition Last Done: 12/21/24 05:20
ED-Female Genitourinary Assessment Last Done: 12/21/24 02:49
Discharge Date and Time
Discharge Date/Time: 12/21/24 05:27
[2024-12-21] MEDS: STERILE WATER FOR INJECTION 10 ML IV ×3 (04:45→17:00)
[2024-12-21] MEDS: MERREM 500 MG IV ×3 (04:45→17:01)
--- NOTE | 2024-12-21 04:45 | HPS.HSE ---
Family Physician
-
Family Physician: Arturo Franklin
Chief Complaint
-
Chills, Abd Pain
History of Present Illness
Patient is a 79y F with PMH significant for recurrent UTIs and recent colovaginal fistula repair (11/30) who presents to ED complaining of persistent chills and lower abdominal discomfort. Patient underwent robotic colovaginal fistula repair with
partial colon resection and repair of vaginal wall defect on 11/30/24. She states that she felt well following the surgery. Unfortunately, she developed recurrent chills and lower abdominal discomfort - similar to her prior UTIs - Friday of last
week. Patient was originally placed on Macrobid. Her symptoms did not improve and she was changed to Bactrim. Culture data returned and she was changed back to Macrobid. Her symptoms have not improved. She spoke with her surgeon this evening
who recommended she be admitted to the hospital for IV antibiotics.
Patient notes that she 'does not get fevers'. She complains of chills, lower abdominal discomfort and general malaise. She has urinary frequency. No dysuria. Pos nausea without emesis. No cough or dyspnea. No chest pain.
Medical History
Past Medical History
Past Medical History: Reports Other
Additional Past Medical History:
Left Hip PJI - Chronic Pain
Hypertension
OAB
Past Surgical History: Reports Other
Additional Past Surgical History:
Robotic Sigmoid Resection, Takedown of Colovaginal Fistula, Repair of Vaginal Wall Defect (11/30/24)
Hysterectomy
Left SAMI - Multiple I&D / revision surgeries due to PJI
Right SAMI
Back Surgery
Lumpectomy
Cholecystectomy
Social History
Tobacco: Former Smoker (Quit smoking > 50 years ago.)
Alcohol: None
Drug: None
Family History
Family History: Not pertinent
Allergies / Home Medications
Allergies reflects when Allergies were last updated in [employer].
Home Medications with original date entered in [employer]
Allergy/Medication List:
Allergies
Allergy/AdvReac Type Severity Reaction Status Date / Time
Opioids - Morphine Analogues Allergy Rash Verified 12/21/24 04:22
Home Medications
atorvastatin 10 mg tablet 10 mg PO DAILY High Cholesterol 11/23/24
biotin 10,000 mcg capsule 10,000 mcg PO DAILY Supplement 11/23/24
escitalopram oxalate 20 mg tablet 20 mg PO DAILY Depression 11/23/24
methocarbamol 500 mg tablet 500 mg PO .HSPRN Muscle Spasms 11/23/24
olmesartan 40 mg-hydrochlorothiazide 12.5 mg tablet 1 tab PO DAILY Blood Pressure 11/23/24
tramadol 50 mg tablet 50 mg PO Q6H PRN Pain #20 tabs 12/02/24
esomeprazole magnesium 40 mg capsule,delayed release 40 mg PO DAILY 12/21/24
quetiapine 50 mg tablet 50 mg PO HSPRN PRN Insomnia 12/21/24
Review of Systems
-
History Source: Patient
A 12 point ROS was completed and negative except as noted: Yes
Constitutional: Reports Fatigue and Chills; Denies Fever
Respiratory: Denies Cough or Trouble Breathing
Cardiac: Denies Chest Pain or Palpitations
Abdomen/GI: Reports Abdominal Pain and Nausea; Denies Vomiting, Diarrhea or Constipated
: Reports Frequency; Denies Dysuria, Flank Pain or Incontinence
Musculoskeletal: Reports Joint Pain (chronic L hip pain); Denies Edema
Neurological: Denies Dizzy or Headache
Psych: Denies Depression or Anxiety
Physical Exam
Vital Signs
Vital Signs
Temp Pulse Resp BP Pulse Ox
98.3 F 71 18 126/98 98
12/20/24 20:24 12/21/24 04:15 12/21/24 04:22 12/21/24 01:00 12/21/24 04:22
Physical Exam
General: Other (79y F in no acute distress.)
HEENT: Moist mucous membranes and PERRLA
Respiratory: Clear; No Wheezes, Rales or Rhonchi
Cardiac: S1/S2 and Regular Rhythm; No Murmur
GI: Soft, Non Tender, Non Distended, Normal Bowel Sounds and Other (Surgical sites intact without discharge, bleeding, erythema, etc.)
Musculoskeletal: No Clubbing, No Cyanosis and No Edema
Neuro: AO x 3
Laboratory Results
-
12/20/24 20:36
12/20/24 20:36
Laboratory Results
Total Bilirubin 0.8 mg/dl (0.2-1.3) 12/20/24 20:36
AST 22 U/L (14-36) 12/20/24 20:36
ALT < 10 U/L (0-35) 12/20/24 20:36
Alkaline Phosphatase 79 U/L (38-126) 12/20/24 20:36
Impression/Plan
-
A/P: Patient is a 79y F with PMH significant for hypertension and recurrent UTIs who presents to ED complaining of chills and lower abdominal pain s/p recent robotic colovaginal fistula repair.
ESBL Klebsiella UTI
Enterococcus UTI
s/p Colovaginal fistula repair 11/30/24
- Admit for further evaluation and treatment.
- Patient with persistent symptoms despite outpatient treatment with Macrobid (x 2) and Bactrim.
- Will begin IV meropenem given ESBL Klebsiella.
- UA today is unremarkable - having been on abx for several days.
- ID evaluation for additional recommendations.
- CT done in the ED this evening shows a collection underlying the lower abdominal incision - ? seroma v abscess.
- Colorectal Surgery eval. ? aspiration / drain placement.
Benign Hypertension
- Continue outpatient regimen with holding parameters.
Chronic Pain Syndrome
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
- Continue tramadol PRN.
DVT Prophylaxis: Subcut Heparin
Code Status: Full
[2024-12-21 05:36] VITALS: BP 148/80
[2024-12-21 05:37] VITALS: BMI 23.3
[2024-12-21 05:39] VITALS: BMI 23.3
[2024-12-21] MEDS: NSS 1000 IV ×2 (06:08→16:54)
[2024-12-21] MEDS: ULTRAM 50 MG PO ×2 (06:12→21:19)
[2024-12-21 07:30] VITALS: BP 152/75
[2024-12-21 08:25] LABS: Hematocrit 34.9 % (37.0-47.0); Hemoglobin 12.0 g/dL (12.0-16.0); Mean Corp Hgb Conc. 34.4 g/dL (33.0-37.0); Mean Corpuscular Volume 95.9 fL (81.0-99.0); Platelet Count 311 10^3/uL (130-400); Red Cell Dist. Width 12.2 % (11.5-14.5)
[2024-12-21 08:44] LABS: Blood Urea Nitrogen 18 mg/dl (7-17); Calcium 8.7 mg/dl (8.4-10.2); Carbon Dioxide 26 mmol/L (22-30); Chloride 105 mmol/L (98-107); Estimated Creatinine Clearance 50 ml/min; Glucose 95 mg/dl (70-99); Potassium 3.9 mmol/L (3.5-5.1); Sodium 135 mmol/L (135-145); eGFR > 60.00
[2024-12-21] MEDS: LEXAPRO 20 MG PO (08:54)
[2024-12-21] MEDS: PROTONIX 40 MG PO (08:54)
[2024-12-21] MEDS: ORETIC 12.5 MG PO (08:54)
[2024-12-21] MEDS: LIPITOR 10 MG PO (08:55)
[2024-12-21] MEDS: HEPARIN 5000 UNITS SC ×2 (08:55→19:40)
[2024-12-21] MEDS: BENICAR 40 MG PO (08:55)
--- NOTE | 2024-12-21 09:10 | CON.CRS ---
Consultation
-
Date/Time Consultation Requested: 12/21/24 @5:24
Date/Time Consultation Performed: 12/21/24 @8:15
Requesting Provider: iVn Rooney DO
Performing Provider: Ace Gamboa
Reason for Consultation: Abdominal wall seroma
Medical History
-
Chief Complaint: Lower abdominal discomfort
History of Present Illness:
71-year-old female who underwent a robotic colovaginal fistula repair on 11/30/2024 who presents to the ED with chills and lower abdominal discomfort. She she also has urinary frequency and a known UTI. She was treated with Macrobid which was
subsequently changed to Bactrim. Cultures grew Klebsiella and Enterococcus and she was switched back to Macrobid. She did not improve and was referred to the ED for evaluation.
She states that she feels much better since being started on meropenem. She is hungry and she denies any pain. Her bowels are regular.
She has remained afebrile and her vital signs are normal. She is not tachycardic. On physical examination she is in no acute distress. Her abdomen is soft, nondistended and nontender. The incisions are well-healed. At the lower incision there
is no erythema, induration, fluctuance or tenderness.
Her white count yesterday and today are normal.
I personally reviewed the CT scan of the abdomen pelvis with contrast and reveals a 4.6 x 1.7 x 2.9 cm peripherally enhancing fluid collection in the lower midline. There are a few bubbles of air.
Past Medical History
Past Medical History: Hypercholesterolemia and Other (Chronic left hip pain)
Past Surgical History: Bowel Resection (As per the HPI), Cholecystectomy, Gynecological (Hysterectomy) and Orthopedic
Social History
Tobacco: Non-Smoker
Alcohol: None
Personal: Single
Living: Alone
Family History
Family History: Reviewed & Not Pertinent
Allergies / Home Medications
Allergy/AdvReac Type Severity Reaction Status Date / Time
Opioids - Morphine Analogues Allergy Rash Verified 12/21/24 04:22
�Medication �Instructions �Recorded �Confirmed �Type
atorvastatin 10 mg tablet 10 mg PO DAILY High Cholesterol 11/23/24 12/21/24 History
biotin 10,000 mcg capsule 10,000 mcg PO DAILY Supplement 11/23/24 12/21/24 History
escitalopram oxalate 20 mg tablet 20 mg PO DAILY Depression 11/23/24 12/21/24 History
methocarbamol 500 mg tablet 500 mg PO .HSPRN Muscle Spasms 11/23/24 12/21/24 History
olmesartan 40 1 tab PO DAILY Blood Pressure 11/23/24 12/21/24 History
mg-hydrochlorothiazide 12.5 mg
tablet
tramadol 50 mg tablet 50 mg PO Q6H PRN Pain #20 tabs 12/02/24 12/21/24 Rx
esomeprazole magnesium 40 mg 40 mg PO DAILY 12/21/24 12/21/24 History
capsule,delayed release
quetiapine 50 mg tablet 50 mg PO HSPRN PRN Insomnia 12/21/24 12/21/24 History
Review of Systems
-
History Source: Patient
A 10 point review of systems was completed, and was negative except as per HPI.
Physical Exam
Vital Signs
Temp 99.0 F 12/21/24 07:30
Pulse 73 12/21/24 07:30
Resp Rate 16 12/21/24 07:30
Blood pressure 152/75 12/21/24 07:30
SaO2 98 12/21/24 07:30
12/20/24 12/21/24 12/22/24
06:59 06:59 06:59
Actual Weight 56.019 kg
Body Mass Index (BMI) 23.3
Lab Results / Allergies
12/21/24 07:30
12/21/24 07:30
WBC 6.8 10^3/uL (4.8-10.8) 12/21/24 07:30
Hgb 12.0 g/dL (12.0-16.0) 12/21/24 07:30
Hct 34.9 % (37.0-47.0) L 12/21/24 07:30
Plt Count 311 10^3/uL (130-400) D 12/21/24 07:30
Abs Immat Gran (auto) 0.1 10^3/uL (0-0.05) H 12/20/24 20:36
Neutrophils % 54.3 % (42.2-75.2) 12/20/24 20:36
Allergy/AdvReac Type Severity Reaction Status Date / Time
Opioids - Morphine Analogues Allergy Rash Verified 12/21/24 04:22
Physical Exam
General: Well Developed, Well Nourished, No Apparent Distress and Comfortable
HEENT: Anicteric
GI: Soft, Non Tender, Non Distended and Other (The incisions are well-healed and there is no evidence of infection)
Data Reviewed
-
CT Scan: Image Personally Visualized and interpreted, Report Reviewed by me and Discussed with Patient
Labs: Labs Reviewed by me and Discussed with Patient
Assessment / Plan
-
Probable lower abdominal incision seroma. She is afebrile with a normal white count and there are no findings on examination to suggest an infection. I suspect her symptoms are due to the persistent UTI and repeat cultures are pending.
I reviewed the management options including observation (she will be on antibiotics for UTI) versus an aspiration. We discussed the risks and benefits of each at the present time the plan is for observation.
Will place on a regular diet.
The seroma can be managed as an outpatient.
--- NOTE | 2024-12-21 09:10 | W.PN.HOSP.TC ---
Today's Communication/Plan
-
See plan
Assessment / Plan
Assessment / Plan
Physical Exam
General: Not in acute distress
HEENT: Moist mucous membranes
Respiratory: Clear to Auscultation Bilaterally
Cardiac: S1/S2 and Regular Rhythm
GI: Soft, Non Tender, Non Distended, Normal Bowel Sounds and Other (Surgical sites intact without discharge, bleeding, erythema, etc.)
Musculoskeletal: No Cyanosis and No Edema
Neuro: AO x 3
Assessment/Plan
79y F with H significant for recurrent UTIs and recent colovaginal fistula repair (11/30/24) who presented to [facility] ED complaining of persistent chills and lower abdominal discomfort. Patient underwent robotic colovaginal fistula repair with partial
colon resection and repair of vaginal wall defect on 11/30/24. She states that she felt well following the surgery. Unfortunately, she developed recurrent chills and lower abdominal discomfort - similar to her prior UTIs - on 12/14/24. Patient was
originally placed on Macrobid. Her symptoms did not improve and she was changed to Bactrim. Culture data returned and she was changed back to Macrobid. Her symptoms had not improved. She spoke with her surgeon this evening who recommended she be
admitted to the hospital for IV antibiotics.
Patient notes that she 'does not get fevers'. She complains of chills, lower abdominal discomfort and general malaise. She has urinary frequency. No dysuria. Pos nausea without emesis. No cough or dyspnea. No chest pain.
ESBL Klebsiella UTI
Enterococcus UTI
s/p Colovaginal fistula repair 11/30/24
- Patient with persistent symptoms despite outpatient treatment with Macrobid (x 2) and Bactrim.
- Continue meropenem given ESBL Klebsiella on urine culture from 12/14/24
- UA today is unremarkable - having been on abx for several days.
- ID evaluation for additional recommendations.
- CT done in the ED showed a collection underlying the lower abdominal incision - ? seroma v abscess. -- probable lower abdominal incision seroma as per colorectal surgeon, plan is observation for now
Benign Hypertension
- Continue outpatient regimen with holding parameters.
Chronic Pain Syndrome
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
- Continue tramadol PRN.
DVT Prophylaxis: Subcutaneous Heparin
Code Status: Full Code
This is a non-billable note.
Anticipated Discharge: 24 - 48 hours
Subjective/Interval History
-
Date of Service: December 21, 2024
Patient was seen and examined. She reported that she was feeling much better compared to when she came in.
Objective Data
-
Labs:
Laboratory Results
12/21/24
07:30
WBC 6.8
Hgb 12.0
Hct 34.9 L
Plt Count 311 D
Sodium 135
Potassium 3.9
Chloride 105
Carbon Dioxide 26
BUN 18 H
Creatinine 0.7
Glucose 95
Calcium 8.7
Vital Signs:
Vital Signs
Temp Pulse Resp BP Pulse Ox
99.0 F 73 16 152/75 98
12/21/24 07:30 12/21/24 07:30 12/21/24 07:30 12/21/24 07:30 12/21/24 07:30
--- NOTE | 2024-12-21 10:03 | CON.ID ---
Consultation
-
Date/Time Consultation Requested: 12/21/2024 0524
Date/Time Consultation Performed: 12/21/2024 1003
Requesting Provider: Dr. Rooney
Performing Provider: Dr. Kennedy
Reason for Consultation: Complicated urinary tract infection
Chief Complaint / Past History
History of Present Illness
Evita Mejia is a 79-year-old female being evaluated at the request of Dr. Rooney regarding complicated urinary tract infection secondary to ESBL E. coli. History is obtained from chart review, along with patient interview.
Patient has a recent history of colovaginal fistula, and underwent repair on 11/30/2024. She noted that following the surgery she felt well until approximately 1 week ago when she began to have chills and some lower abdominal discomfort. She
initially was prescribed Macrobid, and when symptoms did not improve she was changed to Bactrim. Despite antibiotic use her symptoms have not improved and she was advised to come in for IV antibiotics.
At this time she complains of lower abdominal discomfort, general malaise and urinary frequency. She denies any charissa dysuria and there has been no hematuria. She notes some nausea without vomiting.
Past History
Additional Past Medical History:
HTN
HLD
Diverticulitis
Hx colovaginal fistula
Additional Past Surgical History:
Cholecystectomy
Robotic sigmoidectomy; colovaginal fistula repair (11/30/24)
Allergy History:
Opioids - Morphine Analogues Allergy (Verified 12/21/24 04:22)
Rash
Medications Reviewed: Yes
Current Antibiotics:
Meropenem 500 mg IV q.8 hours
Social History
Tobacco: Former Smoker
Alcohol: None
Drug: None
Living: With Family
Employment: Retired
Family History
Family History: Not Pertinent
Review of Systems
Vital Signs
Temp Pulse Resp BP Pulse Ox
99.0 F 73 16 152/75 98
12/21/24 07:30 12/21/24 07:30 12/21/24 07:30 12/21/24 07:30 12/21/24 07:30
Physical Exam
Physical Exam
Constitutional: No Acute Distress, Comfortable and Non-toxic
Eyes: No Conjunctival Hemorrhage and Sclera Anicteric
Oral: No Thrush and No Ulcers
Cardiovascular: S1/S2 and Murmur; Negative S3/S4
Pulmonary: Clear; Negative Wheezes, Rales or Rhonchi
Gastrointestinal: Soft, Non Tender, Non Distended and Normal Bowel Sounds
Extremities: Negative Edema, Cyanosis or Erythema
Neurological: Awake and Alert
Psychological: Calm
Lab / Diagnostic Study Results
12/21/24 07:30
12/21/24 07:30
Abs Immat Gran (auto) 0.1 10^3/uL (0-0.05) H 12/20/24 20:36
Absolute Neuts (auto) 5.3 10^3/uL (1.4-6.5) 12/20/24 20:36
Absolute Lymphs (auto) 3.1 10^3/uL (1.2-3.4) 12/20/24 20:36
Absolute Monos (auto) 1.1 10^3/uL (0.1-0.6) H 12/20/24 20:36
Absolute Basos (auto) 0.1 10^3/uL (0-0.2) 12/20/24 20:36
Immature Gran % 0.5 % (0-0.5) 12/20/24 20:36
Neutrophils % 54.3 % (42.2-75.2) 12/20/24 20:36
Lymphocytes % 32.1 % (20.5-51.1) 12/20/24 20:36
Monocytes % 11.0 % (1.7-9.3) H 12/20/24 20:36
Eosinophils % 0.9 % (0-6) 12/20/24 20:36
Basophils % 1.2 % (0-2) 12/20/24 20:36
Ur Squamous Epith Cells 0-2 /LPF (Few) 12/20/24 20:36
Microbiology Results
Micro:
12/20/24 20:36 Urine Culture - Pending
Urine
Urine Culture Final 12/14/24
CC: Greater than 100,000 CFU/ML
Klebsiella pneumoniae-ESBL*
CC: 100,000 CFU/ML Enterococcus faecalis
*Resistance due to extended spectrum beta lactamase.
Deacreased activity may occur with penicillins,
penicillin/inhibitor combinations, cephalosporins, and
monobactams.
Organism 1 Klebsiella pneumoniae-ESBL
Organism 2 Enterococcus faecalis
Kpne-ESBL ENTFCL
M.I.C. RX M.I.C. RX
--------- --- --------- ---
Amoxicillin/Potas. Clavulanate <=8/4 S
Ampicillin >16 R <=2 S
Ampicillin/Sulbactam 8/4 S
Aztreonam >16 R
Cefazolin >16 R
Cefepime >16 R
Ceftazidime 8 I
Ceftriaxone >2 R
Ertapenem <=0.5 S
Ciprofloxacin 0.5 I
Gentamicin <=2 S
Gentamicin Synergy Screen >500 R
Levofloxacin <=1 S
Meropenem <=1 S
Nitrofurantoin-Urine Only <=32 S <=32 S
Piperacillin/Tazobactam <=8 S
Tetracycline >8 R >8 R
Tobramycin <=2 S
Trimethoprim/Sulfamethoxazole >2/38 R
Vancomycin 2 S
Assessment / Plan
Complicated urinary tract infection secondary to ESBL E. coli and Enterococcus faecalis
- Failed outpatient antibiotic therapy
S/p recent robotic sigmoidectomy/repair colovaginal fistula.
HTN
HLD
Diverticulitis
Recommendations:
Continue meropenem.
Monitor white count and temperature curve.
Monitor for symptom improvement.
[2024-12-21] MEDS: TYLENOL 650 MG PO ×2 (11:51→16:59)
--- NOTE | 2024-12-21 13:13 | CM ---
Reviewed the chart notes and spoke with the patient at the bedside. The patient resides with her spouse in a two story home with two steps to enter in a 55[place] community. The patient has had [facility] in the past and been to [facility] and [facility].
The patient confirmed her pharmacy of choice is [facility]. CM continues to be available to patient/family and is monitoring medical plan for needs at discharge.
Plan: Discharge to home when medically stable. No needs anticipated at this time.
[2024-12-21 15:37] VITALS: BP 137/63
[2024-12-21] MEDS: MIRALAX 17 GRAMS PO (16:58)
[2024-12-21] MEDS: COMPAZINE 5 MG IV (19:41)
[2024-12-21 23:43] VITALS: BP 157/81
[2024-12-22] MEDS: MERREM 500 MG IV ×2 (01:32→09:40)
[2024-12-22] MEDS: STERILE WATER FOR INJECTION 10 ML IV ×2 (01:32→09:40)
[2024-12-22] MEDS: NSS 1000 IV (03:42)
[2024-12-22 05:03] VITALS: BMI 23.3
[2024-12-22 06:38] LABS: Hematocrit 36.3 % (37.0-47.0); Hemoglobin 12.5 g/dL (12.0-16.0); Mean Corp Hgb Conc. 34.4 g/dL (33.0-37.0); Mean Corpuscular Volume 95.0 fL (81.0-99.0); Platelet Count 290 10^3/uL (130-400); Red Cell Dist. Width 12.4 % (11.5-14.5)
[2024-12-22 07:00] VITALS: BP 171/89
[2024-12-22 07:13] LABS: Blood Urea Nitrogen 11 mg/dl (7-17); Calcium 9.2 mg/dl (8.4-10.2); Carbon Dioxide 27 mmol/L (22-30); Chloride 110 mmol/L (98-107); Estimated Creatinine Clearance 58 ml/min; Glucose 100 mg/dl (70-99); Magnesium 1.9 mg/dl (1.6-2.3); Potassium 3.6 mmol/L (3.5-5.1); Sodium 139 mmol/L (135-145); eGFR > 60.00
--- NOTE | 2024-12-22 07:52 | W.PN.CRS1 ---
Today's Communication / Plan
-
abx per ID
no plans for surgery - will s/o
Assessment/Plan
-
Probable lower abdominal incision seroma. She is afebrile with a normal white count and there are no findings on examination to suggest an infection. I suspect her symptoms are due to the persistent UTI and repeat cultures are pending.
-Continue diet
-The seroma can be managed as an outpatient.
-Antibiotics per ID
-No plans for surgery at this time, will sign off, please contact if surgical issues arise.
Subjective Data
Subjective Data
Date of Service: December 22, 2024
Patient states she has no complaints.
Objective Data
-
Vital Signs
Temp Pulse Resp BP Pulse Ox
98.4 F 71 12 157/81 95
12/21/24 23:43 12/21/24 23:43 12/21/24 23:43 12/21/24 23:43 12/21/24 23:43
Intake & Output
12/21/24 12/22/24 12/23/24
06:59 06:59 06:59
Intake Total 3040 / 3040
Balance 3040 / 3040
Intake:
Oral fluids 840 / 840
IV fluids (Total) 2200 / 2200
Other:
Number of unmeasured voidings 2
Number of approximated MODERATE 1
amounts of urine
Lab Results
12/22/24 06:09
12/22/24 06:09
Physical Exam
-
General: No Acute Distress and AOx3
Abdomen: Soft, Non Distended, Non Tender and Other (The incisions are well-healed and there is no evidence of infection)
Skin: Warm and Dry
[2024-12-22] MEDS: LEXAPRO 20 MG PO (08:15)
[2024-12-22] MEDS: BENICAR 40 MG PO (08:15)
[2024-12-22] MEDS: ORETIC 12.5 MG PO (08:15)
[2024-12-22] MEDS: LIPITOR 10 MG PO (08:15)
[2024-12-22] MEDS: PROTONIX 40 MG PO (08:15)
[2024-12-22] MEDS: HEPARIN 5000 UNITS SC ×2 (08:15→19:53)
--- NOTE | 2024-12-22 11:45 | W.PN.ID1 ---
Date of Service
Date of Service: December 22, 2024
Today's Communication
transition to amoxicillin.
Assessment / Plan
Complicated urinary tract infection secondary to ESBL E. coli and Enterococcus faecalis
- Failed outpatient antibiotic therapy
- Recent cultures revealed Enterococcus only. No recovery of ESBL.
S/p recent robotic sigmoidectomy/repair colovaginal fistula.
HTN
HLD
Diverticulitis
Recommendations:
D/C meropenam
Transition to amoxcillin 500 mg PO TID for an additional 7 days
Monitor white count and temperature curve.

Chief Complaint
-: UTI
Subjective / Review of Systems
Patient seen and examined. Reports some ongoing urinary urgency, but this predates her hospitalization, and was asymptomatic of her original colovaginal fistula. Denies dysuria.
Review of Systems: No Fever and No Chills
Vital Signs / Physical Exam
Vital Signs
Vital Signs
Temp Pulse Resp BP Pulse Ox
98.1 F 91 18 171/89 99
12/22/24 07:00 12/22/24 07:00 12/22/24 07:00 12/22/24 07:00 12/22/24 07:00
Physical Exam
Constitutional: No Acute Distress, Comfortable and Non-toxic
Eyes: Sclera Anicteric
Cardiovascular: S1/S2; Negative S3/S4
Pulmonary: Clear; Negative Wheezes or Rales
Gastrointestinal: Soft, Non Tender and Non Distended
Genito-Urinary: Negative Gee
Extremities: Negative Edema, Cyanosis or Erythema
Neurological: Awake and Alert
Psychological: Calm
Objective Data
Lab Data
Lab Results
12/22/24 06:09
12/22/24 06:09
Estimated Creat Clear 58 ml/min 12/22/24 06:09
Total Bilirubin 0.8 mg/dl (0.2-1.3) 12/20/24 20:36
AST 22 U/L (14-36) 12/20/24 20:36
ALT < 10 U/L (0-35) 12/20/24 20:36
Alkaline Phosphatase 79 U/L (38-126) 12/20/24 20:36
Most recent labs reviewed.
Micro Results:
12/20/24 20:36 Urine Culture - Preliminary
Urine Enterococcus species
Urine Culture Final 12/14/24
CC: Greater than 100,000 CFU/ML
Klebsiella pneumoniae-ESBL*
CC: 100,000 CFU/ML Enterococcus faecalis
*Resistance due to extended spectrum beta lactamase.
Deacreased activity may occur with penicillins,
penicillin/inhibitor combinations, cephalosporins, and
monobactams.
Organism 1 Klebsiella pneumoniae-ESBL
Organism 2 Enterococcus faecalis
Kpne-ESBL ENTFCL
M.I.C. RX M.I.C. RX
--------- --- --------- ---
Amoxicillin/Potas. Clavulanate <=8/4 S
Ampicillin >16 R <=2 S
Ampicillin/Sulbactam 8/4 S
Aztreonam >16 R
Cefazolin >16 R
Cefepime >16 R
Ceftazidime 8 I
Ceftriaxone >2 R
Ertapenem <=0.5 S
Ciprofloxacin 0.5 I
Gentamicin <=2 S
Gentamicin Synergy Screen >500 R
Levofloxacin <=1 S
Meropenem <=1 S
Nitrofurantoin-Urine Only <=32 S <=32 S
Piperacillin/Tazobactam <=8 S
Tetracycline >8 R >8 R
Tobramycin <=2 S
Trimethoprim/Sulfamethoxazole >2/38 R
Vancomycin 2 S
--- NOTE | 2024-12-22 12:45 | W.PN.HOSP.TC ---
Today's Communication/Plan
-
Transitioned to Amoxicillin -- monitor white blood cell count and temperature curve as per infectious diseases
Appreciate ID
Anticipate discharge tomorrow if patient remains stable
Assessment / Plan
Assessment / Plan
Physical Exam
General: Not in acute distress
HEENT: Moist mucous membranes
Respiratory: Clear to Auscultation Bilaterally
Cardiac: S1/S2 and Regular Rhythm
GI: Soft, Non Tender, Non Distended, Normal Bowel Sounds and Other (Surgical sites intact without discharge, bleeding, erythema, etc.)
Musculoskeletal: No Cyanosis and No Edema
Neuro: AO x 3
Assessment/Plan
79y F with [facility] significant for recurrent UTIs and recent colovaginal fistula repair (11/30/24) who presented to [facility] ED complaining of persistent chills and lower abdominal discomfort. Patient underwent robotic colovaginal fistula repair with partial
colon resection and repair of vaginal wall defect on 11/30/24. She states that she felt well following the surgery. Unfortunately, she developed recurrent chills and lower abdominal discomfort - similar to her prior UTIs - on 12/14/24. Patient was
originally placed on Macrobid. Her symptoms did not improve and she was changed to Bactrim. Culture data returned and she was changed back to Macrobid. Her symptoms had not improved. She spoke with her surgeon this evening who recommended she be
admitted to the hospital for IV antibiotics.
Patient notes that she 'does not get fevers'. She complains of chills, lower abdominal discomfort and general malaise. She has urinary frequency. No dysuria. Pos nausea without emesis. No cough or dyspnea. No chest pain.
ESBL Klebsiella UTI
Enterococcus UTI
s/p Colovaginal fistula repair 11/30/24
- Patient with persistent symptoms despite outpatient treatment with Macrobid (x 2) and Bactrim.
- Continue meropenem given ESBL Klebsiella on urine culture from 12/14/24
- UA today is unremarkable - having been on abx for several days.
- ID evaluation for additional recommendations: switch from Meropenem to Amoxicillin. Appreciate ID.
- CT done in the ED showed a collection underlying the lower abdominal incision - ? seroma v abscess. -- probable lower abdominal incision seroma as per colorectal surgeon, plan is observation for now
Benign Hypertension
- Continue outpatient regimen with holding parameters.
Chronic Pain Syndrome
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
- Continue tramadol PRN.
DVT Prophylaxis: Subcutaneous Heparin
Code Status: Full Code
Anticipated Discharge: Within 24 hours
Subjective/Interval History
-
Date of Service: December 22, 2024
Patient was seen and examined. She reported doing well.
Objective Data
-
Labs:
Laboratory Results
12/22/24
06:09
WBC 6.4
Hgb 12.5
Hct 36.3 L
Plt Count 290
Sodium 139
Potassium 3.6
Chloride 110 H
Carbon Dioxide 27
BUN 11
Creatinine 0.6
Glucose 100 H
Calcium 9.2
Vital Signs:
Vital Signs
Temp Pulse Resp BP Pulse Ox
98.1 F 91 18 171/89 99
12/22/24 07:00 12/22/24 07:00 12/22/24 07:00 12/22/24 07:00 12/22/24 07:00
I&O
12/21/24 12/22/24 12/23/24
06:59 06:59 06:59
Intake Total 3040 / 3040
Balance 3040 / 3040
--- NOTE | 2024-12-22 13:16 | CM ---
Reviewed the chart notes and spoke with the patient and spouse at the bedside. Patient to be discharged to home with oral abx. IMM reviewed. CM continues to be available to patient/family and is monitoring medical plan for needs at discharge.
Plan: Discharge to home when medically stable. No anticipated needs identified at this time.
[2024-12-22] MEDS: NSS IV (13:29)
[2024-12-22 15:00] VITALS: BP 150/68
[2024-12-22] MEDS: AMOXIL 500 MG PO ×2 (16:39→23:37)
[2024-12-22] MEDS: ULTRAM 50 MG PO (18:28)
[2024-12-22] MEDS: TYLENOL 650 MG PO (22:21)
[2024-12-22 23:12] VITALS: BP 176/87
[2024-12-23 05:34] VITALS: BMI 23.1
[2024-12-23 07:25] VITALS: BP 166/90
[2024-12-23] MEDS: BENICAR 40 MG PO (08:01)
[2024-12-23] MEDS: PROTONIX 40 MG PO (08:01)
[2024-12-23] MEDS: ORETIC 12.5 MG PO (08:01)
[2024-12-23] MEDS: AMOXIL 500 MG PO (08:01)
[2024-12-23 08:02] LABS: Hematocrit 37.0 % (37.0-47.0); Hemoglobin 12.8 g/dL (12.0-16.0); Mean Corp Hgb Conc. 34.6 g/dL (33.0-37.0); Mean Corpuscular Volume 95.1 fL (81.0-99.0); Platelet Count 304 10^3/uL (130-400); Red Cell Dist. Width 12.2 % (11.5-14.5)
[2024-12-23] MEDS: LEXAPRO 20 MG PO (08:02)
[2024-12-23] MEDS: LIPITOR 10 MG PO (08:02)
[2024-12-23] MEDS: HEPARIN 5000 UNITS SC (08:02)
[2024-12-23 08:40] LABS: Blood Urea Nitrogen 13 mg/dl (7-17); Calcium 9.3 mg/dl (8.4-10.2); Carbon Dioxide 27 mmol/L (22-30); Chloride 107 mmol/L (98-107); Estimated Creatinine Clearance 50 ml/min; Glucose 93 mg/dl (70-99); Potassium 3.8 mmol/L (3.5-5.1); Sodium 139 mmol/L (135-145); eGFR > 60.00
--- NOTE | 2024-12-23 09:54 | W.PN.ID1 ---
Date of Service
Date of Service: December 23, 2024
Today's Communication
Continue current course of amoxicillin.
Assessment / Plan
Complicated urinary tract infection secondary to ESBL E. coli and Enterococcus faecalis
- Failed outpatient antibiotic therapy
- Inpatient cultures revealed Enterococcus only. No recovery of ESBL.
S/p recent robotic sigmoidectomy/repair colovaginal fistula (11/30/24)
HTN
HLD
Diverticulitis
Recommendations:
Continue amoxcillin 500 mg PO TID for an additional 6 days.
Patient counseled on good fluid intake (approximately 2 quarts/day)
May consider repeat UA and reflex culture approximately 2 weeks following completion of antibiotics.

Chief Complaint
-: UTI
Subjective / Review of Systems
Review of Systems: No Fever, No Chills and No Dysuria
Vital Signs / Physical Exam
Vital Signs
Vital Signs
Temp Pulse Resp BP Pulse Ox
99.0 F 77 16 166/90 95
12/23/24 07:25 12/23/24 07:25 12/23/24 07:25 12/23/24 07:25 12/23/24 07:25
Physical Exam
Constitutional: No Acute Distress, Comfortable and Non-toxic
Eyes: Sclera Anicteric
Cardiovascular: S1/S2; Negative S3/S4
Pulmonary: Non Labored
Extremities: Negative Edema
Neurological: Awake and Alert
Psychological: Calm
Objective Data
Lab Data
Lab Results
12/23/24 07:15
12/23/24 07:14
Estimated Creat Clear 50 ml/min 12/23/24 07:14
Total Bilirubin 0.8 mg/dl (0.2-1.3) 12/20/24 20:36
AST 22 U/L (14-36) 12/20/24 20:36
ALT < 10 U/L (0-35) 12/20/24 20:36
Alkaline Phosphatase 79 U/L (38-126) 12/20/24 20:36
Most recent labs reviewed.
Micro Results:
12/20/24 20:36 Urine Culture - Preliminary
Urine Enterococcus species (60K cfu/mL)
Urine Culture Final 12/14/24
CC: Greater than 100,000 CFU/ML
Klebsiella pneumoniae-ESBL*
CC: 100,000 CFU/ML Enterococcus faecalis
*Resistance due to extended spectrum beta lactamase.
Deacreased activity may occur with penicillins,
penicillin/inhibitor combinations, cephalosporins, and
monobactams.
Organism 1 Klebsiella pneumoniae-ESBL
Organism 2 Enterococcus faecalis
Kpne-ESBL ENTFCL
M.I.C. RX M.I.C. RX
--------- --- --------- ---
Amoxicillin/Potas. Clavulanate <=8/4 S
Ampicillin >16 R <=2 S
Ampicillin/Sulbactam 8/4 S
Aztreonam >16 R
Cefazolin >16 R
Cefepime >16 R
Ceftazidime 8 I
Ceftriaxone >2 R
Ertapenem <=0.5 S
Ciprofloxacin 0.5 I
Gentamicin <=2 S
Gentamicin Synergy Screen >500 R
Levofloxacin <=1 S
Meropenem <=1 S
Nitrofurantoin-Urine Only <=32 S <=32 S
Piperacillin/Tazobactam <=8 S
Tetracycline >8 R >8 R
Tobramycin <=2 S
Trimethoprim/Sulfamethoxazole > R
Vancomycin 2 S
Care Review
Plan reviewed with: Physician (Hospitalist)
--- NOTE | 2024-12-23 11:24 | W.PN.CRS1 ---
Today's Communication / Plan
-
As below
Assessment/Plan
-
79-year-old female with recent robotic sigmoid colectomy for colovaginal fistula on 11/30/[address] Alcala, presented with concern for recurrent UTI. WBC was normal and CT scan showed subcutaneous collection under her Pfannenstiel
incision, concerning for possible abscess; however, white count normal and incision without evidence of infection
AFVSS
WBC 7.6
� Agree that her fever is most likely related to UTI; continue amoxicillin per ID
� Instructed her to continue monitoring her Pfannenstiel incision for any evidence of redness, increasing pain or drainage; if so, instructed her to give me a call at the office; otherwise, can follow-up as currently scheduled, which should be in
the next 2 to 4 weeks
�Appreciate hospitalist; agree with DC from colorectal standpoint
Subjective Data
Subjective Data
Date of Service: December 23, 2024
I ran into patient while she was walking in the hallway, leaving the hospital.
She states that she is doing well, no issues with diet, having bowel function.
Objective Data
-
Vital Signs
Temp Pulse Resp BP Pulse Ox
99.0 F 77 16 166/90 95
12/23/24 07:25 12/23/24 07:25 12/23/24 07:25 12/23/24 07:25 12/23/24 07:25
Intake & Output
12/22/24 12/23/24 12/24/24
06:59 06:59 06:59
Intake Total 3040 / 3040 2231
Balance 3040 / 3040 2231
Intake:
Oral fluids 840 / 840 2231
IV fluids (Total) 2199
Other:
How many times incontinent 3
MODERATE amount urine
Number of approximated MODERATE 1 6
amounts of urine
Number of unmeasured liquid
stools
Rectum 3
Lab Results
12/23/24 07:15
12/23/24 07:14
Physical Exam
-
General: No Acute Distress and AOx3
HEENT: Grossly Normal
Chest: Other (Bilateral excursion)
Cardiovascular: Other (S1/S2)
Abdomen: Soft, Non Distended and Non Tender
Skin: Warm and Dry
--- NOTE | 2024-12-23 11:40 | W.PN.HOSP.TC ---
Today's Communication/Plan
-
Discharge today
Assessment / Plan
Assessment / Plan
Physical Exam
General: Not in acute distress
HEENT: Moist mucous membranes
Respiratory: Clear to Auscultation Bilaterally
Cardiac: S1/S2 and Regular Rhythm
GI: Soft, Non Tender, Non Distended, Normal Bowel Sounds and Other (Surgical sites intact without discharge, bleeding, erythema, etc.)
Musculoskeletal: No Cyanosis and No Edema
Neuro: AO x 3
Assessment/Plan
79y F with [facility] significant for recurrent UTIs and recent colovaginal fistula repair (11/30/24) who presented to [facility] ED complaining of persistent chills and lower abdominal discomfort. Patient underwent robotic colovaginal fistula repair with partial
colon resection and repair of vaginal wall defect on 11/30/24. She states that she felt well following the surgery. Unfortunately, she developed recurrent chills and lower abdominal discomfort - similar to her prior UTIs - on 12/14/24. Patient was
originally placed on Macrobid. Her symptoms did not improve and she was changed to Bactrim. Culture data returned and she was changed back to Macrobid. Her symptoms had not improved. She spoke with her surgeon this evening who recommended she be
admitted to the hospital for IV antibiotics.
Patient notes that she 'does not get fevers'. She complained of chills, lower abdominal discomfort and general malaise. She had urinary frequency. No dysuria. Pos nausea without emesis. No cough or dyspnea. No chest pain.
Complicated urinary tract infection secondary to ESBL E. coli and Enterococcus faecalis - Failed outpatient antibiotic therapy; Inpatient cultures revealed Enterococcus only. No recovery of ESBL.
ESBL Klebsiella UTI
Enterococcus UTI
S/p recent robotic sigmoidectomy/repair colovaginal fistula (11/30/24)
- Patient with persistent symptoms despite outpatient treatment with Macrobid (x 2) and Bactrim.
- Status post meropenem given ESBL Klebsiella on urine culture from 12/14/24
- UA today is unremarkable - having been on abx for several days.
- ID evaluation for additional recommendations: switch from Meropenem to Amoxicillin. Appreciate ID.
- Continue Amoxicillin 500 mg PO TID for an additional 6 days.
- Patient should follow good fluid intake (approximately 2 quarts/day)
- May consider repeat UA and reflex culture approximately 2 weeks following completion of antibiotics.
- CT done in the ED showed a collection underlying the lower abdominal incision - ? seroma v abscess. -- probable lower abdominal incision seroma as per colorectal surgeon, plan is observation for now
- Follow-up with colorectal surgeon Dr. Morris outpatient in the next 2 to 4 weeks
Benign Hypertension
- Continue outpatient regimen with holding parameters.
Chronic Pain Syndrome
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
- Continue tramadol PRN.
Hyperlipidemia
Diverticulitis
DVT Prophylaxis: Subcutaneous Heparin
Code Status: Full Code
More than 30 minutes spent in discharge including
Final examination of the patient
Summarizing hospital stay
Instructions for continuing care to all relevant caregivers
Preparation of discharge records, prescriptions, and referral forms
Total time spent (in minutes): 38
Anticipated Discharge: Today
Subjective/Interval History
-
Date of Service: December 23, 2024
Patient was seen and examined. She denied any new symptoms or complaints, and would like to go home today.
Objective Data
-
Labs:
Laboratory Results
12/23/24 12/23/24
07:14 07:15
WBC 7.6
Hgb 12.8
Hct 37.0
Plt Count 304
Sodium 139
Potassium 3.8
Chloride 107
Carbon Dioxide 27
BUN 13
Creatinine 0.7
Glucose 93
Calcium 9.3
Vital Signs:
Vital Signs
Temp Pulse Resp BP Pulse Ox
99.0 F 77 16 166/90 95
12/23/24 07:25 12/23/24 07:25 12/23/24 07:25 12/23/24 07:25 12/23/24 07:25
I&O
12/22/24 12/23/24 12/24/24
06:59 06:59 06:59
Intake Total 3040 / 3040 2231 / 2231
Balance 3040 / 3040 2231
--- NOTE | 2024-12-23 13:30 | W.DCSUMMARY ---
Discharge Summary
Discharge Data
Date of Admission: 12/21/24
Date of Discharge: 12/23/24
Total time spent discharging patient (in min): 38
-
Pending Results: No
Hospital Course
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 Patient underwent robotic colovaginal
fistula repair with partial colon resection and repair of vaginal wall defect on 11/30/24. She states that she felt well following the surgery. Unfortunately, she developed recurrent chills and lower abdominal discomfort - similar to her prior UTIs.
Patient was originally placed on Macrobid. Her symptoms did not improve and she was changed to Bactrim. Culture data returned and she was changed back to Macrobid. Her symptoms still did not improve. She spoke with her surgeon this evening who
recommended she be admitted to the hospital for IV antibiotics.
Patient notes that she 'does not get fevers'. She complained of chills, lower abdominal discomfort and general malaise. She had urinary frequency. Patient was started on Meropenem for ESBL E. coli. Infectious Disease and Colorectal Surgery were
consulted. CT imaging of the abdomen pelvis with contrast showed, as per colorectal surgeon, a 4.6 x 1.7 x 2.9 cm peripherally enhancing fluid collection in the lower midline, and it was noted that there were a few bubbles of air. Colorectal surgery
mentioned no surgery needed while inpatient, and that seroma could be managed outpatient. Patient recent cultures showed Enterococcus only, but no recovery of ESBL. Patient was transitioned to Amoxicillin, she was doing better and stable for
discharge. Symptoms was attributed to UTI rather than her abdominal incision/suspected seroma area. Patient's condition improved and she was stable for discharge.
Discharge Plan
-
Patient Disposition: Home (Routine Discharge)
Discharge Diagnosis/Procedures: Complicated urinary tract infection secondary to ESBL E. coli and Enterococcus faecalis - Failed outpatient antibiotic therapy; Inpatient cultures revealed Enterococcus only. No recovery of ESBL.
ESBL Klebsiella UTI
Enterococcus UTI
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
Benign Hypertension
Chronic Pain Syndrome
Hyperlipidemia
Diverticulitis
Condition: Good
Diet: Low Fat, Low Cholesterol and Low Sodium
Activity: As tolerated
Activity Restrictions/Additional Instructions:
Please follow good fluid intake (approximately 2 quarts/day).
Consider repeat urinalysis and reflex culture approximately 2 weeks following completion of antibiotics.
Instructions: Amoxicillin
Referrals:
Arturo Franklin DO [Family Provider, Family Practice] - in less than 1 week
Referral Note: Hospitalization Follow-Up
Williams Morris MD [Active, ColoRectal] - in two to four weeks
Additional Discharge Medication Instructions: Amoxicillin is a new medication.
Prescriptions:
New
amoxicillin 500 mg Capsule
500 mg PO Q8 6 Days Qty: 18 0RF
Continued
methocarbamol 500 mg Tablet
500 mg PO .HSPRN
atorvastatin 10 mg Tablet
10 mg PO DAILY
biotin 10,000 mcg Capsule
10,000 mcg PO DAILY
escitalopram oxalate 20 mg Tablet
20 mg PO DAILY
olmesartan-hydrochlorothiazide 40-12.5 mg Tablet
1 tab PO DAILY
tramadol 50 mg tablet
50 mg PO Q6H PRN (Reason: Pain) Qty: 20 0RF
esomeprazole magnesium 40 mg capsule,delayed release(DR/EC)
40 mg PO DAILY
quetiapine 50 mg tablet
50 mg PO HSPRN PRN (Reason: Insomnia)
Discharge Orders:
Discharge Patient (As Directed); Ordered 12/23/24
Ordered By: Rodriguez Bender
Discharge Date and Time
Discharge Date/Time: 12/23/24 14:08
Print Language: BANGLADESHI
[2024-12-23 13:46] VITALS: BP 152/89
--- NOTE | 2024-12-23 13:54 | CM ---
Reviewed the chart notes. Patient for discharge to home today. No needs identified at this time. Spouse to provide transportation.
[2024-12-23 20:04] LABS: Hepatitis C Antibody Negative (Negative)
== END 2024-12-23 14:08 | disposition home or self-care (01) | DRG 690 ==
LOC: 2 NORTH 04:51
PROVIDERS: ADMITTING PHYSICIAN Hospitalist; ATTENDING PHYSICIAN Hospitalist; EMERGENCY PHYSICIAN Emergency Medicine; FAMILY PHYSICIAN Family Medicine; OTHER PHYSICIAN Internal Medicine Infectious Disease; OTHER PHYSICIAN Surgery
DX: N39.0 Urinary tract infection, site not specified (principal); Z16.12 Extended spectrum beta lactamase (ESBL) resistance; Z87.440 Personal history of urinary (tract) infections; B96.20 Unspecified Escherichia coli [E. coli] as the cause of diseases classified elsewhere; B96.1 Klebsiella pneumoniae [K. pneumoniae] as the cause of diseases classified elsewhere; G89.4 Chronic pain syndrome; I10 Essential (primary) hypertension; N32.81 Overactive bladder; E78.00 Pure hypercholesterolemia, unspecified; Z87.891 Personal history of nicotine dependence; Z90.710 Acquired absence of both cervix and uterus; Z79.899 Other long term (current) drug therapy
CPT/HCPCS: 74177; 80048; 80053; 81003; 81015; 83735; 85025; 85027; 86803; 87077; 87086; 87186; 96361; 96374; 96375; 99285; Q9967